=== PATIENT | female | born 2000 | race Caucasian/White ===

== ENCOUNTER 2020-02-25 14:00 | Emergency (ER) | payer OTHER ==
[~2020-02-25] VITALS: Ht 162.6 cm; Wt 68.2 kg
[2020-02-25 17:32] VITALS: BP 108/72
== END 2020-02-25 17:35 | disposition home or self-care (01) ==
LOC: EMS 14:00
DX: R53.1 Weakness (principal); Z11.1 Encounter for screening for respiratory tuberculosis
CPT/HCPCS: 71045-TC